=== PATIENT | female | born 1955 | race Caucasian/White ===

== ENCOUNTER 2019-02-02 15:58 | Outpatient (CLI) | payer MEDICARE ==
[~2019-02-02 15:58] MED LIST: ACET325T14 PO; ALBU8.5H8 INH; AMLO-150 PO; ATOR20TA37 PO; CEFD300C37 PO; CLON0.1T12 PO; ESTR1TAB15 PO; FURO20TA3 PO; IPRA3AMP30 NPPB; LISI-170 PO; LISI1TAB5 PO; METO-95 PO; METO25TA91 PO; POTA10TA5 PO; RIVA20TA PO
== END 2019-02-02 23:59 | disposition home or self-care (01) ==
LOC: CFH 15:58
PROVIDERS: ATTEND Registered Nurse
DX: J84.10 Pulmonary fibrosis, unspecified (principal); J44.9 Chronic obstructive pulmonary disease, unspecified
CPT/HCPCS: 71250

== ENCOUNTER 2019-05-26 14:13 | Outpatient (CLI) | payer MEDICARE ==
[~2019-05-26 14:13] MED LIST changes: +LISI1TAB19 PO; -LISI1TAB5 PO
[2019-07-13] MEDS ORDERED: HYDROCHLOROTH12.5 MG PO (13:51)
[2019-07-13] MEDS ORDERED: ATOR20TA37 PO (13:51)
[2019-07-13] MEDS ORDERED: APIX5TAB PO (13:51)
[2019-07-13] MEDS ORDERED: AMLO-150 PO (13:51)
[2019-07-13] MEDS ORDERED: METO-99 PO (13:51)
[2019-07-14] MEDS ORDERED: LISI-170 PO (07:39)
[2019-07-14] MEDS ORDERED: CHOL40002 PO (07:39)
[2019-07-15] MEDS ORDERED: ACET325T26 PO (10:05)
== END 2019-05-26 23:59 | disposition home or self-care (01) ==
LOC: CARD 14:13
PROVIDERS: ATTEND Internal Medicine
DX: R06.02 Shortness of breath (principal)
CPT/HCPCS: 94060; 94618; 94726; 94729